=== PATIENT | female | born 2000 ===

== ENCOUNTER 2023-07-08 22:07 | Emergency (ER) | payer MEDICAID, OTHER ==
[~2023-07-08] VITALS: Ht 160 cm; Wt 54.5 kg
[2023-07-08 22:32] VITALS: BP 109/84; PULSE 81; RESP 16; O2SAT 99
[2023-07-08] MEDS ORDERED: LIDOCAINE VISCOUS 2% 15ML UD MT ONE (23:15)
[2023-07-08] MEDS ORDERED: DexAMETHasone SOD PHOS 10MG/1ML VIAL INJ IM ONE (23:15)
[2023-07-08] MEDS ORDERED: IBUPROFEN 400 MG TAB PO ONE (23:15)
[2023-07-08] MEDS ORDERED: cefTRIAXone SOD 1,000 MG VL IM ONE (23:15)
[2023-07-08] MEDS ORDERED: AZITTAB PO (23:25)
[2023-07-08] MEDS ORDERED: BENZ200C64 PO (23:25)
[2023-07-08] MEDS ORDERED: PRED20TA2 PO (23:25)
[2023-07-08] MEDS ORDERED: BENZLOZ2 MT (23:25)
[2023-07-08] MEDS ORDERED: GENT0.3S10 EACHEYE (23:25)
== END 2023-07-09 01:12 | disposition home or self-care (01) ==
LOC: ER 22:07
DX: J03.90 Acute tonsillitis, unspecified (principal); H10.9 Unspecified conjunctivitis; R05.9 Cough, unspecified
CPT/HCPCS: 96372; 99284; J0696; J1100